=== PATIENT | female | born 1995 | race Caucasian/White ===

== ENCOUNTER → 2021-10-23 10:59 | Outpatient (CLI) | payer OTHER, SELFPAY ==
[2021-10-23 12:34] LABS: HCG Quantitative /Beta subunit 24119 mIU/mL
== END ==
PROVIDERS: PCP Physician Assistant Medical; Referring Provider Obstetrics & Gynecology; Visit Provider Obstetrics & Gynecology
DX: O20.9 Hemorrhage in early pregnancy, unspecified (principal)
CPT/HCPCS: 36415; 84702

== ENCOUNTER → 2021-10-26 10:42 | Outpatient (CLI) | payer OTHER, SELFPAY ==
[2021-10-26 13:01] LABS: HCG Quantitative /Beta subunit 43648 mIU/mL
== END ==
PROVIDERS: PCP Physician Assistant Medical; Referring Provider Obstetrics & Gynecology; Visit Provider Obstetrics & Gynecology
DX: O20.9 Hemorrhage in early pregnancy, unspecified (principal)
CPT/HCPCS: 36415; 84702

== ENCOUNTER → 2021-11-04 09:24 | Outpatient (CLI) | payer OTHER, SELFPAY ==
--- NOTE | 2021-11-04 09:25 | DI.US.S_ITS ---
PROCEDURE: US OB <= 14 WEEKS FETUS INDICATIONS: DATING OB OUTSIDE/PRIOR DATING DATA: Last menstrual period (LMP): 09/09/2021 LMP-based estimated date of delivery (ILDA): 06/16/2022 First dating scan (date and location): Today 11/04/2021 Estimated date of delivery (ILDA) from first dating scan: 06/20/2022 TECHNIQUE: Real-time scanning was performed of the fetus and maternal pelvic organs, with image documentation. Endovaginal scanning was also performed to better visualize the fetus and maternal ovaries. COMPARISON: None. FINDINGS: Embryo: Intrauterine is present Heart rate: 160 beats per minute Maternal organs: Ovaries are within normal limits. Possible left corpus luteum. CRL is 1.2 cm, corresponding to an ultrasound age of 7 weeks and 3 days. Slightly oval yolk sac measuring 4 mm. Small perigestational bleed measuring 1.1 x 0.4 cm. The yolk sac is slightly irregular. IMPRESSION: Living intrauterine with ultrasound age of 7 weeks and 3 days. Dictated by: Nacho Root M.D. on 11/04/2021 at 10:51 Approved by: Nacho Root M.D. on 11/04/2021 at 10:54
== END ==
PROVIDERS: PCP Physician Assistant Medical; Referring Provider Obstetrics & Gynecology; Visit Provider Obstetrics & Gynecology
DX: Z34.91 Encounter for supervision of normal pregnancy, unspecified, first trimester (principal); Z3A.01 Less than 8 weeks gestation of pregnancy
CPT/HCPCS: 76801; 76817

== ENCOUNTER → 2021-12-15 16:16 | Outpatient (CLI) | payer OTHER, SELFPAY ==
[2021-12-15 16:45] LABS: Add Manual Diff / Slide Review NO; Basophils Absolute Auto 0 /uL (0-100); Basophils Percent Auto 0.4 % (0-2); Eosinophils Absolute Auto 0 /uL (0-450); Eosinophils Percent Auto 0.2 % (2-4); Hematocrit 33.6 % (36-46); Hemoglobin 12.1 g/dL (12.0-16.0); Lymphocytes Absolute Auto 1500 /uL (1100-4500); Lymphocytes Percent Auto 21.6 % (25-40); Mean Corpuscular Hemoglobin 32.4 PG (26-34); Mean Corpuscular Volume 90.1 fL (80-100); Monocytes Absolute Auto 400 /uL (0-900); Monocytes Percent Auto 6.3 % (3-14); Neutrophils Absolute Auto 5000 /uL (1500-7000); Neutrophils Percent Auto 71.5 % (50-75); Platelet Count 194 X10^3/uL (150-400); Red Blood Cell Count 3.72 X10^6/uL (4.0-5.2); Red Cell Distribution Width 12.6 % (11.6-14.8)
[2021-12-16 16:12] LABS: Hepatitis B Surface Antigen NEGATIVE s/c (NEGATIVE); Rubella Antibody IgG 30.7 IU/mL (>15)
[2021-12-16 16:25] LABS: HIV 1 & 2 Ab/Ag 4th Gen Combo NEGATIVE (NEGATIVE); Hep C Virus Ab w/Reflex Quant NEGATIVE s/c (NEGATIVE)
[2021-12-17 04:38] LABS: RPR Screen Non Reactive (Non Reactive)
[2021-12-17 16:23] LABS: Varicella IgG Antibody 152 index (Immune >165)
== END ==
PROVIDERS: PCP Physician Assistant Medical; Referring Provider Obstetrics & Gynecology; Visit Provider Obstetrics & Gynecology
DX: Z34.01 Encounter for supervision of normal first pregnancy, first trimester (principal)
CPT/HCPCS: 36415; 80055; 86787; 86803; 86850; 86900; 86901; 87389

== ENCOUNTER → 2022-01-12 08:07 | Outpatient (CLI) | payer OTHER, SELFPAY ==
[2022-01-12 13:25] LABS: Appearance Urine UA CLEAR; Bilirubin Urine UA NEGATIVE (NEGATIVE); Color Urine UA YELLOW; Glucose Urine UA NEGATIVE (Negative); Ketones Urine UA NEGATIVE (NEGATIVE); Leukocyte Esterase Urine UA TRACE (NEGATIVE); Nitrite Urine UA NEGATIVE (Negative); Occult Blood Urine UA NEGATIVE (Negative); Protein Urine UA NEGATIVE (Negative); Specific Gravity Urine UA <=1.005 (1.000-1.035); Urobilinogen Urine UA 0.2 E.U./dL (0.2)
[2022-01-12 13:28] LABS: pH Urine UA 6.5 (4.5-8.0)
[2022-01-12 14:07] LABS: Bacteria Urine Few (2-10); RBC Urine None Seen (0-5/HPF); Squamous Epithelial Cell Urine 0-1 /HPF (0-5/HPF); WBC Urine 0-1/HPF (0-5/HPF)
== END ==
PROVIDERS: PCP Physician Assistant Medical; Visit Provider Obstetrics & Gynecology
DX: Z34.01 Encounter for supervision of normal first pregnancy, first trimester (principal)
CPT/HCPCS: 81003; 81015; 87086

== ENCOUNTER → 2022-01-12 08:26 | Outpatient (CLI) | payer OTHER, SELFPAY ==
[2022-01-14 19:22] LABS: Estriol, Free 1.56 ng/mL (.); Inhibin A, Dimeric 194.54 pg/mL (.); Inhibin A, MoM 1.52 (.); Maternal Ethnicity Caucasian (.); Maternal Weight 215 lbs (.); Number of Fetuses No (.); OSBR Risk 1 IN 10000 (.); Results Report (.); Test Results *Screen Negative* (.); hCG, MoM 1.31 (.); hCG, Serum 32459 mIU/mL (.)
== END ==
PROVIDERS: PCP Physician Assistant Medical; Referring Provider Obstetrics & Gynecology; Visit Provider Obstetrics & Gynecology
DX: Z34.02 Encounter for supervision of normal first pregnancy, second trimester (principal); Z15.89 Genetic susceptibility to other disease; Z3A.17 17 weeks gestation of pregnancy
CPT/HCPCS: 36415; 81003; 81015; 82105; 82677; 84702; 86336; 87086

== ENCOUNTER → 2022-02-02 15:18 | Outpatient (CLI) | payer OTHER, SELFPAY ==
--- NOTE | 2022-02-02 15:19 | DI.US.S_ITS ---
PROCEDURE: US OB >= 14 WEEKS FETUS INDICATIONS: 20 week u/s OUTSIDE/PRIOR DATING DATA: Last menstrual period (LMP): 09/09/2021. LMP-based estimated date of delivery (ILDA): 06/16/2022. First dating scan (date and location): 11/04/2021. Estimated date of delivery (ILDA) from first dating scan: 06/20/2022. The calculations are made using the working ILDA of 06/16/2022. TECHNIQUE: Real-time scanning was performed of the fetus, with image documentation and biometric measurements. Endovaginal scanning: Not performed COMPARISON: None. FINDINGS: General: A single living intrauterine gestation is present. Presentation: Variable. Placenta: Placental position is posterior , without previa. Amniotic fluid index: 16.5 cm, normal range is 5-24 cm. Single deepest vertical pocket is 5.1 cm. heart rate: 153 beats per minute. Maternal cervical canal: 6.5 cm long. Normal lower limit is 2.5 cm. biometrics: Biparietal diameter: 5.1 cm, 21 weeks 2 days Head circumference: 18.7 cm, 21 weeks 0 days Abdominal circumference: 16.9 cm, 21 weeks 6 days Femur length: 3.6 cm, 21 weeks 3 days estimated gestational age: 20 weeks 6 days Composite gestational age from present scan: 21 weeks 3 days Estimated weight and percentile: 436 g, 83rd percentile Anatomic survey: Neuro: Ventricles are non-dilated at less than 10 mm. Cisterna magna is normal at 3-11 mm. Cerebellum is normal in size and morphology. Nuchal skin fold: Normal at less than 6 mm between 14-21 weeks gestational age. Face: Nose and lips, facial profile are normal. Spine: No evidence for spina bifida. Heart: Not well visualized due to lie. Diaphragm: Diaphragm is intact. Stomach: Left-sided stomach is present. Kidneys: Mild urinary tract dilation present bilaterally. Left renal pelvis diameter of 5.1 mm, right renal pelvis diameter 4.1 mm. Cord: 3-vessel cord has orthotopic insertion. Bladder: Normal in size. Extremities: All 4 extremities identified. IMPRESSION: 1. Single living intrauterine . 2. Cardiac four-chamber view and ventricular outflow tracts not well visualized due to lie. Follow-up is recommended. 3. Mild urinary tract dilation present bilaterally. Attention to this finding on follow-up for cardiac views is recommended. We strive to produce accurate, complete, and clear reports of imaging services. To assist us in improving patient care, this report was composed using standard report templates and voice recognition software. Therefore, it may contain abnormal punctuation, insertions and/or omissions. Occasional wrong-word or sound-alike substitutions may occur. Though we review the report and make efforts to correct it, we do recommend that the report be read carefully in proper context to recognize any text inaccuracies. Dictated by: Juan Pablo Bai M.D. on 02/03/2022 at 14:27 Approved by: Juan Pablo Bai M.D. on 02/03/2022 at 14:51
== END ==
PROVIDERS: PCP Physician Assistant Medical; Referring Provider Obstetrics & Gynecology; Visit Provider Obstetrics & Gynecology
DX: Z34.92 Encounter for supervision of normal pregnancy, unspecified, second trimester (principal); Z3A.21 21 weeks gestation of pregnancy
CPT/HCPCS: 76811

== ENCOUNTER → 2022-02-25 09:44 | Outpatient (CLI) | payer OTHER, SELFPAY ==
--- NOTE | 2022-02-25 09:46 | DI.US.S_ITS ---
PROCEDURE: US OB FOLLOW UP INDICATIONS: Follow-up to complete 20 wk anatomy scan OUTSIDE/PRIOR DATING DATA: Last menstrual period (LMP): 09/09/2021. LMP-based estimated date of delivery (ILDA): 06/16/2022. First dating scan (date and location): 11/04/2021. Estimated date of delivery (ILDA) from first dating scan: 06/20/2022. The calculations are made using the working ILDA of 06/16/2022. TECHNIQUE: Real-time scanning was performed of the fetus, with image documentation and biometric measurements. Endovaginal scanning: Multiple COMPARISON: [facility], , OB <= 14 WEEKS FETUS, 11/04/2021, 9:51. [facility], OB >= 14 WEEKS FETUS, 02/02/2022, 15:47. FINDINGS: General: A single living intrauterine gestation is present. Presentation: Transverse. Placenta: Placental position is posterior , without previa. Amniotic fluid index: 16.7 cm, normal range is 5-24 cm. Single deepest vertical pocket is 5.4 cm. heart rate: 157 beats per minute. Maternal cervical canal: 4.6 cm long. Normal lower limit is 2.5 cm. biometrics: Not performed Clinically estimated gestational age: 24 weeks 1 day Other: four-chamber heart view and ventricular outflow tracts are normal. kidneys are normal without renal pelviectasis. IMPRESSION: 1. A single living intrauterine gestation redemonstrated. 2. Normal heart and kidneys. We strive to produce accurate, complete, and clear reports of imaging services. To assist us in improving patient care, this report was composed using standard report templates and voice recognition software. Therefore, it may contain abnormal punctuation, insertions and/or omissions. Occasional wrong-word or sound-alike substitutions may occur. Though we review the report and make efforts to correct it, we do recommend that the report be read carefully in proper context to recognize any text inaccuracies. Dictated by: Sophie Kellogg M.D. on 02/25/2022 at 11:04 Approved by: Sophie Kellogg M.D. on 02/25/2022 at 11:10
== END ==
PROVIDERS: PCP Physician Assistant Medical; Referring Provider Obstetrics & Gynecology; Visit Provider Obstetrics & Gynecology
DX: Z36.2 Encounter for other antenatal screening follow-up (principal); Z3A.24 24 weeks gestation of pregnancy
CPT/HCPCS: 76816

== ENCOUNTER → 2022-03-02 07:54 | Outpatient (CLI) | payer OTHER, SELFPAY ==
[2022-03-02 09:35] LABS: Hematocrit 30.2 % (36-46); Hemoglobin 10.7 g/dL (12.0-16.0)
[2022-03-02 09:56] LABS: GTT (PREG) 1 Hour PP 50gm Dose 83 mg/dL (76-139)
[2022-03-02 12:37] LABS: Urine N gonorrhoeae NOT DETECTED
[2022-03-02 14:37] LABS: Urine Chlamydia NOT DETECTED
== END ==
PROVIDERS: PCP Physician Assistant Medical; Referring Provider Obstetrics & Gynecology; Visit Provider Obstetrics & Gynecology
DX: Z34.02 Encounter for supervision of normal first pregnancy, second trimester (principal); Z3A.26 26 weeks gestation of pregnancy
CPT/HCPCS: 36415; 82950; 85014; 85018; 87491; 87591

== ENCOUNTER 2022-04-25 21:16 | Outpatient (CLI) | payer OTHER, SELFPAY ==
[2022-04-25 22:14] VITALS: BP 119/69
== END 2022-04-25 22:21 | disposition home or self-care (01) ==
LOC: LABOR 21:50 → OB 05-02 08:18
PROVIDERS: PCP Physician Assistant Medical; Referring Provider Obstetrics & Gynecology; Visit Provider Obstetrics & Gynecology
DX: O36.8130 Decreased fetal movements, third trimester, not applicable or unspecified (principal); Z3A.32 32 weeks gestation of pregnancy
CPT/HCPCS: 59025; G0378; G0379

== ENCOUNTER → 2022-05-19 11:38 | Outpatient (CLI) | payer OTHER, SELFPAY ==
[2022-05-20 11:09] LABS: Strep Grp B PCR NEG for Grp B Strep
== END ==
PROVIDERS: PCP Physician Assistant Medical; Visit Provider Obstetrics & Gynecology
DX: Z34.03 Encounter for supervision of normal first pregnancy, third trimester (principal); Z3A.36 36 weeks gestation of pregnancy
CPT/HCPCS: 87653

== ENCOUNTER 2022-06-16 10:38 | Outpatient (CLI) | payer OTHER, SELFPAY | END 2022-06-16 11:26 | disposition home or self-care (01) | LOC: LABOR 11:25 → OB 06-17 15:20 | PROVIDERS: PCP Physician Assistant Medical; Referring Provider Obstetrics & Gynecology; Visit Provider Obstetrics & Gynecology | DX: O48.0 Post-term pregnancy (principal); Z3A.40 40 weeks gestation of pregnancy | CPT/HCPCS: 59025; 76815; G0378; G0379 ==

== ENCOUNTER 2022-06-22 19:16 | Inpatient (IN) | payer OTHER, SELFPAY ==
[2022-06-22 20:53] VITALS: BP 106/65
[2022-06-22 21:12] LABS: Add Manual Diff / Slide Review NO; Basophils Absolute Auto 0 /uL (0-100); Basophils Percent Auto 0.2 % (0-2); Eosinophils Absolute Auto 100 /uL (0-450); Eosinophils Percent Auto 0.4 % (2-4); Hematocrit 36.5 % (36-46); Lymphocytes Absolute Auto 2400 /uL (1100-4500); Lymphocytes Percent Auto 19.1 % (25-40); Mean Corpuscular HGB Conc 35.6 % (30-36); Mean Corpuscular Hemoglobin 33.5 PG (26-34); Mean Corpuscular Volume 93.9 fL (80-100); Monocytes Absolute Auto 800 /uL (0-900); Monocytes Percent Auto 6.4 % (3-14); Neutrophils Absolute Auto 9400 /uL (1500-7000); Neutrophils Percent Auto 73.9 % (50-75); Platelet Count 202 X10^3/uL (150-400); Red Blood Cell Count 3.88 X10^6/uL (4.0-5.2); Red Cell Distribution Width 12.7 % (11.6-14.8); White Blood Cell Count 12.7 X10^3/uL (4.5-11.0)
[2022-06-22] MEDS: miSOPROStoL 25 MCG TABLET 50 MCG PO (21:28)
[2022-06-22] MEDS: ZOLPIDEM 5 MG TABLET PO (22:44)
[2022-06-23] MEDS: miSOPROStoL 25 MCG TABLET 50 MCG PO (01:03)
[2022-06-23] MEDS: fentaNYL 100 MCG/2 ML INJ 50 MCG IV ×2 (05:39→13:15)
[2022-06-23] MEDS: LACTATED RINGERS 1,000 ML 100 ML IV ×4 (05:41→22:31)
--- NOTE | 2022-06-23 07:56 | P.HPOB_ITS ---
OB HPI Date/Time Date of admission: 06/22/22 Date Patient Seen: 06/23/22 Time Patient Seen: 07:56 History of Present Condition Chief complaint: IUP 40+6 wks EGA, induction due to post-dates : 1 Para: 0 Estimated Date of Delivery: 06/16/22 Estimated Gestational Age (weeks): 41+0 Narrative: Annamaria Gongora is a 26 year old ILDA 06/16/2022 admitted now at 40+ 6 weeks gestational age for cervical ripening/induction due to post-dates. Her course has been entirely uneventful with solid dating and appropriate milestones throughout. 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 GBS is negative. Indications Indication for induction OB: post dates History of Present care: good care Dating criteria: LMP confirmed by 1st trimester US Ultrasounds: normal 1st trimester US and normal mid trimester US Obstetrical complications: none Medical complications: other (Monoallelic mutation SMN1 gene, FOB negative) Preadmission Labs Blood type: B (+) positive -: Antibody screen: negative, GBS status: negative, HBsAG: negative, HIV: negative and RPR/VDLR: negative -: Chlamydia screen: not detected and Gonorrhea screen: not detected -: Rubella: immune and Varicella: not immune HCT: 36.5 HCAB: negative PAP: Normal Quad screen: Normal 1 hr GTT: 83 Prior (ies) History: N/A Evaluation Evaluation Baseline heart rate: 135 Variability: Moderate (11-25) monitor accelerations: Present Monitor Decelerations: Absent Contraction Frequency (minutes): 3 Uterine Contraction Intensity: Moderate Category of Tracing: Reactive Status: Category l Dilation (cm): 2 Effacement (%): 80 Dilation: 1-2 cm Effacement: >/=80% station: -2 Position of cervix: mid Consistency: soft Mcclain score: 8 PFSH Medical History (Updated 06/16/22 @ 12:24 by Bethel Stringer MD) C. difficile colitis GERD (gastroesophageal reflux disease) (~2020) Heavy menstrual period (~2006) Monoallelic mutation of SMN1 gene Painful menstrual periods (~2006) Surgical History (Updated 12/10/21 @ 19:57 by Renetta Shook) Anesthesia H/O hand surgery (~05/25/20) H/O hand surgery (~05/27/21) History of root canal procedure Family History (Updated 12/10/21 @ 20:04 by Renetta Shook) Grandmother Hypertension Heart disease Hyperlipidemia Heart attack Dementia Grandfather Stroke Hypertension Hyperlipidemia Family/Other Hypothyroidism History of recurrent miscarriages Family/Other Depression Anxiety Alcoholism Hyperlipidemia Hypertension Family/Other Anxiety Depression Alcoholism Drug abuse Family/Other Anxiety Depression Anorexia nervosa Mother Hypertension History of hysterectomy Father Monoallelic mutation of SMN1 gene Sister Monoallelic mutation of SMN1 gene Grandfather Myelofibrosis Grandmother Hyperlipidemia Preeclampsia Sister Preeclampsia Cystic fibrosis carrier Family/Other Spina bifida Social History marital status: number of children: 0 household members: spouse lives independently: Yes housing[place] pets and animals: Yes (1 dog, aware of toxo) education level: college (jorge's degree) occupational status: unemployed current occupational exposures/hazards: No doroteo/lutheran: Mormonism special doroteo needs: No travel history: recent (domestic only) seatbelt use: always water heater temp set < 120 deg: Yes working smoke detector in home: Yes fire extinguisher in home: Yes carbon monox detector in home: Yes firearms in home: Yes do you feel safe at home: Yes Smoking Status: Never smoker second hand exposure: No alcohol intake: former (rarely prior to ) substance use type: does not use during the past year weight has: remained stable well-balanced diet: daily or most days daily servings fruits/ve-4 caffeine: Yes (aware of 200mg limit) Type(s) of exercise: walking frequency: daily duration: 45-60 minutes/day Meds Home Medications and Allergies Home Medications Medication Instructions Recorded Confirmed Type folic acid 800 mcg tablet 0.8 mg PO DAILY 11/02/21 06/22/22 History prenat.vits,sindi,hgr-opct-vriqo 1 tab PO DAILY 11/02/21 06/22/22 History ferrous sulfate 324 mg (65 mg 324 mg PO DAILY #30 tabs 03/03/22 06/22/22 Rx iron) tablet,delayed release Double electric breast pump 1 ea topical .prn #1 ea 04/01/22 06/22/22 Rx Allergies Allergy/AdvReac Type Severity Reaction Status Date / Time Sulfa (Sulfonamide Allergy Intermediate Rash Verified 06/16/22 11:51 Antibiotics) Review of Systems Review of Systems Narrative: Problem-specific ROS positives included in HPI OB Exam Vital signs Blood Pressure: 103/54 Pulse Rate: 93 Respiratory Rate: 20 Temperature: 97.6 F HENMT Head: normal to inspection, normocephalic and atraumatic Eyes General: appearance normal, both eyes and all related structures Resp Effort & Inspection: normal respiratory effort and able to speak in complete sentences Auscultation: clear to auscultation bilaterally Cardio Rate: regular rate Rhythm: regular rhythm Heart Sounds: S1 normal, S2 normal and no murmurs Extremities Lower extremity: Yes normal to inspection GI Inspection: normal to inspection Palpation: Yes soft and Yes no hepatosplenomegaly Uterus Location (Fundal Height): 39 Presentation: vertex Estimated Weight (lbs): 9 Objective Labs 06/22/22 20:15 Labs: Laboratory Results - last 24 hr 06/22/22 06/22/22 20:15 20:15 WBC 12.7 H RBC 3.88 L Hgb 13.0 Hct 36.5 MCV 93.9 MCH 33.5 MCHC 35.6 RDW 12.7 Plt Count 202 Neut % (Auto) 73.9 Lymph % (Auto) 19.1 L [place] % (Auto) 6.4 Eos % (Auto) 0.4 L Baso % (Auto) 0.2 Neut # (Auto) 9400 H Lymph # (Auto) 2400 [place] # (Auto) 800 Eos # (Auto) 100 Baso # (Auto) 0 Blood Type B Positive Antibody Screen Negative Assessment and Plan Assessment and Plan Assessment and Plan narrative: ASSESSMENT 1. Intrauterine , 40+ 6 weeks gestational age 2. GBS negative status 3. Monoallelic mutation of SMN1 gene PLAN 1. Admit for cervical ripening/induction 2. See admission orders
[2022-06-23 08:10] VITALS: BP 103/54; PULSE 93; RESP 20; TEMP 36.4
[2022-06-23] MEDS: FENT 2MCG/ML BUPIV 0.125% EPI 200 MCG/100 ML PLAST..BAG 8 MCG EPIDURAL (08:39)
[2022-06-23] MEDS: OXYTOCIN PREMIX 30 UNIT/500 ML PLAST..BAG IV (08:39)
[2022-06-23] MEDS: ONDANSETRON 4 MG/2 ML INJ 8 MG IV (11:09)
[2022-06-23] MEDS: FENT 2MCG/ML BUPIV 0.125% EPI 200 MCG/100 ML PLAST..BAG 6 MCG EPIDURAL (15:09)
[2022-06-23] MEDS: CALCIUM CARBONATE 500 MG TAB 1000 MG PO (17:53)
--- NOTE | 2022-06-23 18:41 | PM.OBPNLAB ---
Date/Time Date Patient Seen: 06/23/22 Time Patient Seen: 17:56 Pain Control Pain control: tolerating well and epidural Pelvic Exam Dilation (cm): 10 Effacement (%): 100 station: +2 Amniotic membrane status: Ruptured (Light meconium) Contractions Contractions on admission: none Monitor mode: External Pitocin rate (mU/min): 6 Contraction frequency (min): 3 Contraction duration (min): 1 Contraction pattern: Regular Contraction phase: Resting Contraction intensity: Strong/Firm Status status: Category l Heart Rate Baseline: 135 Monitor Accelerations: Present Monitor Decelerations: Absent Monitor Variability: Moderate Assessment and Plan Assessment: active labor and induction ongoing Plan: continuous present management Comments: Start pushing, anticipate .
--- NOTE | 2022-06-23 23:47 | PM.OBPRVD ---
Events: Labor Induction Labor & Delivery Delivery date: 06/23/22 Intrapartal Events: Ineffective Pushing, Prolonged 2nd Stage > 2.5 hours and Extended Tachycardia Cervical ripening method: per misoprostal protocol Induction method: per pitocin protocol Delivery monitor: external FHT and external uterine Route of delivery: and vacuum extraction Indication for instrumentation: nonreassuring FHR tracing ( tachycardia) Episiotomy description: None L&D Laceration Description: Perineal - 2nd Degree Delivery repair: chromic Estimated blood loss (mL): 350 Anesthesia Type: Epidural Complications: Poor Apgars, normal cord blood gases Narrative: Following a minute 2nd stage, the vertex at only descended down to within a cm of the introitus despite best maternal efforts. Due to the prolonged 2nd stage and tachycardia, patient and were counseled regarding the option of vacuum assisted delivery and the decision was made to move in that direction. A Manufacturers[employer] Inventory Omni cup vacuum extractor was placed and 2 pulls without pop offs were required bring the vertex to . Section pressures were never above 550 mg of mercury, no pop offs occurred, and suction was broken after each of the 2 pulls. The then delivered spontaneously over an intact perineum and a loose umbilical cord was reduced prior to delivery of the shoulders with no shoulder dystocia encountered. Skin to skin contact was initiated on immediately but because the was not vigorous at , the decision was made to clamp the umbilical cord after about 20 seconds. The infant was then transferred to the warmer and NRP initiated with stimulation, positive pressure ventilation placement of electrodes monitor heart rate, and pulse oximeter. Cord pH sample was obtained and results were reported as normal with a venous pH of 7.30 and a base deficit 8. Once the cord gas sample was obtained, additional samples were obtained for routine studies. The placenta was then delivered with gentle cord traction on umbilical cord and suprapubic countertraction. Placenta itself was found to be intact, the umbilical cord contained 3 vessels, and the insertion was central. Inspection of the perineum showed a second-degree midline perineal laceration which was closed with 2-0 chromic in the usual manner. Patient tolerated procedure well and at the completion of the delivery process, both mother and infant doing well. [place] Baby 1: gender: Male Presentation: vertex Position: Left Occiput Anterior Placenta delivery description: Spontaneous Cord Vessel Description: 3 Vessels and Nuchal Cord (x 1, loose, easily reduced prior to shoulder delivery) score (1 min): 4 score (5 min): 6 score (10 min): 8 weight: 9 lb 8.031 oz Plan for aftercare: Routine care
[2022-06-23 23:54] VITALS: PULSE 168; RESP 68; O2SAT 82
[2022-06-24 07:14] LABS: Hemoglobin 10.7 g/dL (12.0-16.0); Mean Corpuscular HGB Conc 35.7 % (30-36); Mean Corpuscular Hemoglobin 33.7 PG (26-34); Mean Corpuscular Volume 94.2 fL (80-100); Platelet Count 215 X10^3/uL (150-400); Red Blood Cell Count 3.19 X10^6/uL (4.0-5.2)
[2022-06-24 07:15] LABS: Add Manual Diff / Slide Review YES
[2022-06-24 07:16] LABS: White Blood Cell Count 31.4 X10^3/uL (4.5-11.0)
[2022-06-24 08:00] LABS: Neutrophils Absolute Manual 27004 /uL (3000-5900); Total Cells Counted 100
[2022-06-24 08:01] LABS: Anisocytosis 1+
[2022-06-24 08:44] LABS: Hematocrit 33.8 % (36-46); Hemoglobin 11.8 g/dL (12.0-16.0); Mean Corpuscular HGB Conc 35.1 % (30-36); Mean Corpuscular Hemoglobin 33.8 PG (26-34); Mean Corpuscular Volume 96.3 fL (80-100); Platelet Count 117 X10^3/uL (150-400); Red Blood Cell Count 3.51 X10^6/uL (4.0-5.2); White Blood Cell Count 25.6 X10^3/uL (4.5-11.0)
[2022-06-24 08:49] LABS: Add Manual Diff / Slide Review YES
[2022-06-24 09:05] LABS: Neutrophils Absolute Manual 21504 /uL (3000-5900); Total Cells Counted 100
[2022-06-24 09:06] LABS: Anisocytosis 1+; Smudge Cells 2+
[2022-06-24] MEDS: IBUPROFEN 600 MG TABLET PO ×2 (09:22→15:43)
[2022-06-24] MEDS: DOCUSATE 100 MG CAPSULE PO ×2 (09:22→21:33)
--- NOTE | 2022-06-24 13:26 | PM.OBPN.1 ---
Subjective - OB Subjective Patient comments: no complaints and pain well controlled [place] baby status: doing well [place] feeding status: exclusively breast feeding Narrative: Patient has done extremely well since delivery as has her . Her lochia is light and her perineal pain is under good control. She has not had any nausea and vomiting. She also denies any UTI or bladder symptoms. Date Patient Seen: 06/24/22 Time Patient Seen: 13:27 Exam Const General: cooperative and comfortable Nutritional Appearance: average body habitus Orientation: alert and oriented x3 HENMT Head: normal to inspection, atraumatic and abrasion Ears: hearing grossly normal bilaterally Face and sinus: face symmetric Eyes General: appearance normal, both eyes and all related structures Conjunctivae: conjunctivae normal Sclera: sclerae normal EOM: EOM intact bilaterally Neck Neck: normal visual inspection Resp Effort & Inspection: normal respiratory effort and able to speak in complete sentences GI Inspection: normal to inspection Palpation: soft, no hepatosplenomegaly and mass (Firm, mildly tender fundus, U -2) External Female Exam: other (Perineum intact, no significant bleeding noted) Extrem General: no calf tenderness Psych Appearance: grossly normal Mental Status: mental status grossly normal Speech and Movement: speech and movement normal Mood: congruent mood Affect: normal affect Attitude: cooperative Thought Process: normal Thought Content: normal Judgment: judgment good Objective Labs 06/24/22 08:20 Labs: Laboratory Results - last 24 hr 06/24/22 06/24/22 06:40 08:20 WBC 31.4 H* D 25.6 H RBC 3.19 L 3.51 L Hgb 10.7 L 11.8 L Hct 30.0 L 33.8 L MCV 94.2 96.3 MCH 33.7 33.8 MCHC 35.7 35.1 RDW 13.0 13.0 Plt Count 215 117 L Neut % (Auto) Not Reportable Not Reportable Lymph % (Auto) Not Reportable Not Reportable [place] % (Auto) Not Reportable Not Reportable Eos % (Auto) Not Reportable Not Reportable Baso % (Auto) Not Reportable Not Reportable Lymph # (Auto) Not Reportable Not Reportable [place] # (Auto) Not Reportable Not Reportable Baso # (Auto) Not Reportable Not Reportable Total Counted 100 100 Seg Neutrophils % 74.0 H 84.0 H Band Neutrophils % 12.0 H Lymphocytes % (Manual) 6.0 L 9.0 L Monocytes % (Manual) 5.0 7.0 Eosinophils % (Manual) 3.0 Neutrophils # (Manual) 90739 H 62511 H Smudge Cells 2+ H RBC Morphology See below See below Anisocytosis 1+ H 1+ H Assessment & Plan Plan day: 1 plan OB: routine care Comments: WBC markedly elevated, will repeat prior to discharge. No evidence of ongoing infectious or significant inflammatory processes. Anticipate discharge AM 06/25/2022. Time Spent With Patient Time: Total time spent is greater than 50% in coordination of care (as documented) at patient's floor/unit and/or counseling patient: Time with patient: 15-24 minutes
[2022-06-25] MEDS: IBUPROFEN 600 MG TABLET PO ×3 (04:27→20:32)
[2022-06-25] MEDS: OXYCODONE IR 10 MG TABLET PO (04:28)
[2022-06-25 06:34] LABS: Add Manual Diff / Slide Review NO; Basophils Absolute Auto 100 /uL (0-100); Basophils Percent Auto 0.3 % (0-2); Eosinophils Absolute Auto 200 /uL (0-450); Eosinophils Percent Auto 1.4 % (2-4); Hematocrit 23.4 % (36-46); Hemoglobin 8.3 g/dL (12.0-16.0); Lymphocytes Absolute Auto 3000 /uL (1100-4500); Lymphocytes Percent Auto 17.4 % (25-40); Mean Corpuscular HGB Conc 35.6 % (30-36); Mean Corpuscular Hemoglobin 33.7 PG (26-34); Mean Corpuscular Volume 94.7 fL (80-100); Monocytes Absolute Auto 1000 /uL (0-900); Monocytes Percent Auto 6.1 % (3-14); Neutrophils Absolute Auto 12700 /uL (1500-7000); Neutrophils Percent Auto 74.8 % (50-75); Platelet Count 160 X10^3/uL (150-400); Red Blood Cell Count 2.47 X10^6/uL (4.0-5.2); Red Cell Distribution Width 13.1 % (11.6-14.8)
--- NOTE | 2022-06-25 09:20 | PM.OBDS.1 ---
Discharge Providers Provider Date of admission: 06/22/22 19:16 Discharge Date: 06/25/22 Primary care physician: Keri Mcfarlane PA-C Consults: 06/22/22 20:26 Consult to Anesthesiology Urgent Comment: Consulting Provider: Bethel Stringer Reason for consultation: Epidural Has provider been notified: No 06/24/22 23:44 Consult to Facilities Operator Routine Comment: Discharge provider: Miranda Lozada MD Summary Hospital Course Date Patient Seen: 06/25/22 Time Patient Seen: 09:20 Diagnoses: Vacuum assisted vaginal delivery with repair of second-degree tear. Acute blood loss anemia. Hospital Course: Patient arrived on Labor and delivery for postdates induction on 06/22/2022. Patient received an epidural catheter for pain control. She had a vacuum assisted vaginal delivery with repair of a second-degree tear. Patient did well . She did have acute blood loss anemia. Peripartum Data Delivery Method: Assisted Delivery (Vacuum) Laceration Description: Perineal - 2nd Degree Procedures: Induction of labor, epidural catheter, vacuum assisted vaginal delivery, repair of second-degree tear complications: none 1: Gender: Male Disposition of : home Discharge Diagnosis (1) Vacuum-assisted vaginal delivery: Status: Acute (2) Acute blood loss anemia: Status: Acute Status at Discharge Cognitive/behavioral status at discharge: oriented Functional status at discharge: independent ambulation Overall status at discharge: patient is progressing back to baseline Time Spent with Patient Time attestation: Total time spent providing and/or coordinating discharge services: Time spent: Less than 30 minutes Objective Labs 06/25/22 06:25 Labs: Laboratory Results - last 24 hr 06/25/22 06:25 WBC 17.0 H RBC 2.47 L Hgb 8.3 L Hct 23.4 L MCV 94.7 MCH 33.7 MCHC 35.6 RDW 13.1 Plt Count 160 Neut % (Auto) 74.8 Lymph % (Auto) 17.4 L [place] % (Auto) 6.1 Eos % (Auto) 1.4 L Baso % (Auto) 0.3 Neut # (Auto) 19239 H Lymph # (Auto) 3000 [place] # (Auto) 1000 H Eos # (Auto) 200 Baso # (Auto) 100 Exam Vital Signs (past 8 hours): Blood pressure 114/73, pulse of 94, temperature 97.2 Narrative Exam Narrative: Abdomen is soft, nontender. Uterus is firm, at U, nontender. Mild lochia. Repair is intact. Trace edema with no tenderness of the extremities. Discharge Plan Discharge Plan Patient Disposition: Home Provider Discharge Comment: Please review the written instructions you received when you were discharged from the hospital. Your follow-up appointment will be scheduled for 6 weeks after delivery and I look forward to seeing you then. If however in the meanwhile you have any issues, concerns, or questions, please contact me either through the office phone at [phone] or via the patient portal. Discharge orders & Medications Prescriptions: New oxycodone 5 mg tablet 5 mg PO Q6H PRN (Reason: pain) Qty: 12 0RF Continued Double electric breast pump 1 ea topical .prn Qty: 1 0RF Rx Instructions: Use electric breast pump and supplies as directed for 99 months. ILDA 06/16/22 prenat.vits,sindi,bxt-jlcl-etddz Tablet 1 tab PO DAILY folic acid 800 mcg tablet 0.8 mg PO DAILY ferrous sulfate 324 mg (65 mg iron) tablet,delayed release (DR/EC) 324 mg PO DAILY Qty: 30 2RF Medication counseling provided by Pharmacist: No Follow up/Referrals: Bethel Stringer MD [Physician] - Keri Mcfarlane PA-C [Primary Care Provider] - Discharge Health Status Multidrug resistant organism: No MDRO Diet/Activity/Treatments Diet: Diet as Tolerated Activity: As tolerated Other treatments: [id number] Tylenol and/or ibuprofen may be used for additional pain relief. Pier-[id number] stool softeners and or MiraLax may be used as needed for constipation. Skin/Wound/Dressing Care Report to your healthcare provider any signs of infection, such as:: chills, fever, increased pain, unusual drainage and unusual redness Visit Report/Discharge Packet Instructions: Diet, DI for Labor and Delivery, Vaginal , DI for and Nipple Soreness, DI for Prescription Opioid Use Discharge Data Primary Care Provider: Keri Mcfarlane
[2022-06-25] MEDS: LANOLIN OINT 7 GM 1 APPLIC TOP (20:31)
[2022-06-25] MEDS: DERMOPLAST SPRAY 20% 60 ML 1 SPRAY TOP (20:31)
[2022-06-25] MEDS: DOCUSATE 100 MG CAPSULE PO (20:32)
[2022-06-25] MEDS: ACETAMINOPHEN 325 MG TABLET 650 MG PO (20:33)
== END 2022-06-25 21:45 | disposition home or self-care (01) | DRG 806 ==
PROVIDERS: Admitting Provider Obstetrics & Gynecology; PCP Physician Assistant Medical; Referring Provider Obstetrics & Gynecology; Visit Provider Obstetrics & Gynecology
DX: O48.0 Post-term pregnancy (principal); D62 Acute posthemorrhagic anemia; Z37.0 Single live birth; O90.81 Anemia of the puerperium; Z3A.41 41 weeks gestation of pregnancy; O70.1 Second degree perineal laceration during delivery; O76 Abnormality in fetal heart rate and rhythm complicating labor and delivery; O63.1 Prolonged second stage (of labor); Z15.89 Genetic susceptibility to other disease
CPT/HCPCS: 36415; 59050; 59200; 59400; 85007; 85025; 86850; 86900; 86901; G0379; J2405; J2590; J3010

== ENCOUNTER → 2022-06-28 15:29 | Outpatient (CLI) | payer OTHER, SELFPAY ==
[2022-06-28 17:53] LABS: Add Manual Diff / Slide Review NO; Basophils Absolute Auto 0 /uL (0-100); Basophils Percent Auto 0.3 % (0-2); Eosinophils Absolute Auto 200 /uL (0-450); Hemoglobin 9.6 g/dL (12.0-16.0); Lymphocytes Absolute Auto 2700 /uL (1100-4500); Lymphocytes Percent Auto 23.2 % (25-40); Mean Corpuscular HGB Conc 35.5 % (30-36); Mean Corpuscular Hemoglobin 34.1 PG (26-34); Mean Corpuscular Volume 96.1 fL (80-100); Monocytes Absolute Auto 800 /uL (0-900); Neutrophils Absolute Auto 7800 /uL (1500-7000); Neutrophils Percent Auto 67.5 % (50-75); Platelet Count 270 X10^3/uL (150-400); Red Blood Cell Count 2.81 X10^6/uL (4.0-5.2); Red Cell Distribution Width 12.8 % (11.6-14.8); White Blood Cell Count 11.5 X10^3/uL (4.5-11.0)
[2022-06-28 18:32] LABS: Alanine Aminotransferase 25 IU/L (<35); Albumin Globulin Ratio 1.1 (1.0-2.8); Alkaline Phosphatase 58 U/L (38-126); Aspartate Aminotransferase 29 IU/L (14-36); BUN Creatinine Ratio 14.3 (6-22); Bilirubin Total 0.3 mg/dL (0.2-1.3); Blood Urea Nitrogen 11 mg/dL (7-17); Carbon Dioxide 25 mmol/L (22-32); Estimated Glomerular Filt Rate > 60 mL/min (>60); Globulin 2.7 g/dL (1.7-4.1); Glucose 85 mg/dL (70-100); HEMOLYSIS < 15 (0-50); Total Protein 5.7 g/dL (6.3-8.2)
[2022-06-28 18:37] LABS: Chloride 105 mmol/L (98-107); Potassium 4.5 mmol/L (3.4-5.1); Sodium 136 mmol/L (137-145)
== END ==
PROVIDERS: PCP Physician Assistant Medical; Referring Provider Obstetrics & Gynecology; Visit Provider Obstetrics & Gynecology
DX: R60.9 Edema, unspecified (principal); Z39.2 Encounter for routine postpartum follow-up; I10 Essential (primary) hypertension; M79.89 Other specified soft tissue disorders; O90.89 Other complications of the puerperium, not elsewhere classified
CPT/HCPCS: 36415; 80053; 85025; 87077; 87086; 87186

== ENCOUNTER → 2022-07-09 09:34 | Outpatient (CLI) | payer OTHER, SELFPAY ==
[2022-07-09 10:52] LABS: Appearance Urine UA CLEAR; Bilirubin Urine UA NEGATIVE (NEGATIVE); Color Urine UA YELLOW; Glucose Urine UA NEGATIVE (Negative); Ketones Urine UA NEGATIVE (NEGATIVE); Leukocyte Esterase Urine UA 2+ (NEGATIVE); Nitrite Urine UA NEGATIVE (Negative); Occult Blood Urine UA TRACE-INTACT (Negative); Protein Urine UA NEGATIVE (Negative); Specific Gravity Urine UA 1.015 (1.000-1.035); Urobilinogen Urine UA 0.2 E.U./dL (0.2)
[2022-07-09 11:03] LABS: Bacteria Urine Occasional (0-1); Culture Indicated Urine Specimen Cultured; RBC Urine 1-5/HPF (0-5/HPF); Squamous Epithelial Cell Urine 1-5 /HPF (0-5/HPF); WBC Urine 5-10/HPF (0-5/HPF)
== END ==
PROVIDERS: PCP Physician Assistant Medical; Referring Provider Obstetrics & Gynecology; Visit Provider Obstetrics & Gynecology
DX: N39.0 Urinary tract infection, site not specified (principal)
CPT/HCPCS: 81003; 81015; 87077; 87086; 87186